=== PATIENT | female | born 1975 | race Caucasian/White ===

== ENCOUNTER 2018-02-02 08:07 | Day surgery (SDC) | payer OTHER, SELFPAY ==
[2018-02-01 12:28] VITALS: BMI 41.5
[2018-02-02] VITALS (13 sets, daily range): BP systolic 119–141; BP diastolic 64–81; PULSE 90–105; RESP 12–17; TEMP 36.1–36.6; O2SAT 92–96; BMI 41.5
[2018-02-02] MEDS: LACTATED RINGERS 1,000 ML 42 ML IV ×2 (09:20→12:05)
--- NOTE | 2018-02-02 09:28 | PM.PREOP ---
Pre-operative Note Interval Note Pre-op Check: History & Physical Reviewed by Physician and Exam Performed
--- NOTE | 2018-02-02 09:35 | P.OP_ITS ---
Operative Date/Time/Diagnoses - Date of procedure: 02/02/18 Time of procedure: 12:49 Pre-op diagnosis: chronic pain chronic radiculopathy Post-op diagnosis: same Procedure & Clinicians Procedure: Thoracic laminectomy for placement of spinal cord stimulator paddle Placement of spinal cord stimulator generator Initial complex programming of spinal cord generator Same procedure as scheduled: Yes Indications: 42-year-old female with intractable chronic pain. She had some partial relief with a spinal cord stimulator but was not getting enough stimulation with 1 generator shared between her cervical and lumbar leads. She requested a 2nd generator tibial run both of these at the same time. It was also felt that she could benefit from paddle lead placement for broader coverage. She requested operative intervention. Risks and benefits of surgery discussed and appropriate consents were obtained. Surgeon: Lang Mendoza Director It Project: Leatha Orozco Anesthesia Type: General Operative Notes Findings: None Closure Type: primary Specimen(s): none sent Implants & Drains: [employer] WaveWriterSpinal Cord Stimulator Estimated Blood Loss (mL): 20 Procedure in detail: Patient was brought to the operating room and intubated on the stretcher. There then rolled over to the well-padded prone position on the Jermain table. The back was prepped and draped in the standard sterile fashion. Time-out was performed and preoperative antibiotics were given. Her previous lumbar wire incision was opened up and the leads were pulled easily. We then cut the lumbar leads proximal to the anchors. We used fluoroscopy for localization of the paddle and laminectomy. The plan was to put the paddle over the T7-8 space. A 4 cm midline incision was made and the bilateral paraspinal muscles were dissected out laterally. The cervical leads were in her superficial tissue at this area and we carefully kept them out of the way. A marker was placed to confirm our positioning at T8-9. We then performed a laminectomy at T8-9 with a bur and Kerrison rongeurs. We used the trial and then advanced our paddle implant cephalad. We had difficulty keeping this midline as there is a fair amount of scar tissue. I went up to the next level T7-8 and made a small laminotomy tibial to expose the midline and help advance the paddle until it was in the correct position. We then confirmed positioning at T7-8 with fluoroscopy. The leads were tied down into the soft tissue and then into the lumbodorsal fascia. We then made a 4 cm incision for our generator pocket on the left side below the iliac crest and lateral to the SI joint. We opened the pocket with Bovie. We then used the tunneler to pass the leads down to the generator pocket and hooked up the generator. We ran our initial test to activate the generator and make sure there was good function with the paddle leads. The wounds were then irrigated. An extra loop of lead was made proximally and the remainder was placed deep to the battery. We then placed a primed epidural catheter up underneath the lamina at T7 and advanced it dorsal to the paddle. This had cystic 8 mL of 0.25% Marcaine as well as 100 mcg of fentanyl for postoperative pain relief. The fascia was closed and the epidural was injected without resistance. We placed vancomycin powder into the wounds. The superficial was closed and the skin was closed. Sterile dressing was placed. She was then rolled over, extubated, and brought to recovery room with no complications. Complications: none Condition: stable Disposition: PACU Plan for aftercare: Outpatient. Limited bend, twist, lift for 6 weeks.
[2018-02-02] MEDS: ONDANSETRON 4 MG/2 ML INJ IV (09:58)
[2018-02-02] MEDS: APREPITANT 40 MG CAPSULE PO (09:58)
--- NOTE | 2018-02-02 10:00 | DI.RAD.S_ITS ---
PROCEDURE: XR THORACIC SPINE 3V INDICATIONS: T-8 SPINE STIMULATOR TECHNIQUE: 3 views of the thoracic spine were acquired. [facility] [place], [place], XR THORACOLUMBAR SPINE 2 VIEWS, 08/27/2017, 13:34. FINDINGS: Bones: Intraoperative visualization shows successful placement of a dorsal epidural spinal stimulation lead plate with lead wires extending inferiorly from the superior electrodes which cross the T7-T8 area dorsally. Soft tissues: No paravertebral stripe thickening. IMPRESSION: Successful placement of epidural spinal electrode leads and electrodes plate in the T7-T8 area dorsally. Dictated by: Elia Ni M.D. on 02/02/2018 at 13:24 Approved by: Elia Ni M.D. on 02/02/2018 at 13:27
[2018-02-02] MEDS: CLINDAMYCIN 900 MG/50 ML PIGGYBACK 50 MG IV (10:02)
--- NOTE | 2018-02-02 10:55 | SUR.OPER ---
Prone on spine table, head in foam head support, padded chest and pelvic supports, gel pad at knees, lower legs supported by pillows; nipples, genitalia and toes free of pressure, arms secured on foam padded arm boards at <90 degrees abduction. Tape over blanket at thigh secured to table.
[2018-02-02] MEDS: THROMBIN (BOVINE) 5,000 UNIT VIAL 5000 UNIT TOP (10:58)
[2018-02-02] MEDS: BUPIVACAINE 0.25% (PF) 8 ML, fentaNYL 100 MCG INJ (10:58)
[2018-02-02] MEDS: VANCOMYCIN 1,000 MG VIAL 1000 MG TOP (10:58)
[2018-02-02] MEDS: SODIUM CHLORIDE 0.9% 1,000 ML, GENTAMICIN 80 MG IRR ×2 (10:59→11:01)
[2018-02-02] MEDS: hydrOXYzine 50 MG/ML INJ 25 MG IM (13:31)
[2018-02-02] MEDS: MORPHINE 4 MG/ML INJ 2 MG IV ×3 (13:34→14:07)
[2018-02-02] MEDS: LORazepam 2 MG/ML SYRINGE 0.5 MG IV (13:41)
[2018-02-02] MEDS: OXYCODONE/ACETAMINOPHEN 5/325 TABLET 1 TAB PO ×2 (14:29→14:30)
== END 2018-02-02 15:44 | disposition home or self-care (01) ==
PROVIDERS: PCP Family Medicine; Visit Provider Orthopaedic Surgery
PROC: (CPT 63685; principal; 2018-02-02 09:45)
DX: G89.4 Chronic pain syndrome (principal); Z98.890 Other specified postprocedural states; M54.10 Radiculopathy, site unspecified; E03.9 Hypothyroidism, unspecified; G47.33 Obstructive sleep apnea (adult) (pediatric); G40.909 Epilepsy, unspecified, not intractable, without status epilepticus; E78.5 Hyperlipidemia, unspecified; M79.7 Fibromyalgia; J45.909 Unspecified asthma, uncomplicated; M19.90 Unspecified osteoarthritis, unspecified site; Z68.41 Body mass index [BMI] 40.0-44.9, adult; E66.9 Obesity, unspecified
CPT/HCPCS: 63685; 72072; 76001; C1776; J1100; J2060; J2250; J2270; J2405; J2704; J3010; J3410; J8501

== ENCOUNTER 2018-03-30 06:31 | Day surgery (SDC) | payer OTHER, SELFPAY ==
[2018-03-26 12:47] VITALS: BMI 41.5
[2018-03-30] VITALS (35 sets, daily range): BP systolic 87–148; BP diastolic 51–104; PULSE 84–108; RESP 10–24; TEMP 35.9–36.7; O2SAT 89–99; BMI 41.5
[2018-03-30] MEDS: LACTATED RINGERS 1,000 ML 42 ML IV (07:36)
--- NOTE | 2018-03-30 07:37 | PM.PREOP ---
Pre-operative Note Interval Note Pre-op Check: Yes History & Physical Reviewed by Physician and Yes Exam Performed Changes: No
--- NOTE | 2018-03-30 07:37 | PM.OP.1 ---
Operative Date/Time/Diagnoses Date of procedure: 03/30/18 Pre-op diagnosis: History of spinal cord stimulator Chronic pain Flipped battery of stimulator Post-op diagnosis: same
--- NOTE | 2018-03-30 07:43 | P.OP_ITS ---
Operative Date/Time/Diagnoses Date of procedure: 03/30/18 Pre-op diagnosis: History of spinal cord stimulator Chronic pain Flipped battery of spinal cord stimulator Post-op diagnosis: same Procedure & Clinicians Procedure: Revision placement of spinal cord stimulator battery Same procedure as scheduled: Yes Indications: 42-year-old female with a history of chronic pain. She had a spinal cord stimulator but the battery stopped charging. It was found that the battery had flipped over and was no longer accepting a charge and she would need to have the battery repositioned for full function. Risks and benefits of surgery discussed and appropriate consents were obtained. Surgeon: Lang Mendoza Driller Multiple Spindle: Marla Thomas Click Yes if Unassisted: No Anesthesia Type: General Operative Notes Findings: none Closure Type: primary Specimen(s): none sent Implants & Drains: Estimated Blood Loss (mL): 10 Procedure in detail: The patient's battery impedance was checked in the preop center and was functioning well. The patient was brought to the operating room and intubated on the table. She was rolled over to the well-padded prone position on the Jermain table. The back was prepped and draped in the standard sterile fashion. Preoperative antibiotics were given. Time-out was performed. We opened up her battery pocket using her previous incision and blunt dissection. The battery was still attached on 1 corner but the other corner had pulled loose. Examining it, the battery had not actually flipped over. However, due to her large size, it appeared that the battery had eroded through the adipose tissue to a very deep level. Only the tip of the battery was superficial and the bottom of it was 4 cm underneath the skin which meant that it was too deep to accept the charge. We removed the battery and the wound was irrigated. We then placed deep stitches to close off her deep pocket. We created a very superficial pocket underneath the skin and placed the battery there and tacked it down with several new stitches through the holes. The superficial and the skin were closed. Sterile dressing was placed. She was then rolled over, extubated, and brought back to recovery room with no complications Complications: none Condition: stable Disposition: PACU Plan for aftercare: Outpatient.
[2018-03-30] MEDS: CLINDAMYCIN 900 MG/50 ML PIGGYBACK 50 MG IV (07:48)
[2018-03-30] MEDS: BUPIVACAINE 0.25% W/ EPI VIAL 50 ML INJ (08:15)
[2018-03-30] MEDS: fentaNYL 100 MCG/2 ML INJ 50 MCG IV ×3 (09:09→09:20)
[2018-03-30] MEDS: OXYCODONE/ACETAMINOPHEN 5/325 TABLET 1 TAB PO ×2 (09:16→09:22)
[2018-03-30] MEDS: LORazepam 1 MG TABLET PO (09:27)
--- NOTE | 2018-03-30 09:31 | SUR.PHASEI ---
Spoke with Dr Alfonso polanco using po Lorazepam due to anxiety and possible spasm. With BELA do not want to put back to sleep.
--- NOTE | 2018-03-30 09:34 | SUR.PHASEI ---
Now with c/o of Chest and arm pain. O2 resumed despite sats >92%. Call into OR to Dr Mendoza who okays an EKG.
[2018-03-30] MEDS: fentaNYL 100 MCG/2 ML INJ IV (09:41)
[2018-03-30] MEDS: MORPHINE 10 MG/ML INJ 2 MG IV ×4 (09:55→11:49)
--- NOTE | 2018-03-30 09:58 | SUR.PHASEI ---
EKG complete and shown to DR Hamilton. Difficult to get both the EKG and BP readings due to restlessness. Also moaning. Has received 200mcg Fentanyl, 2Mg Morphine, 1mg Lorazepam po, 10mg Percocet. Still c/o pain and moans. Oxygen ongoing.Mostlysleeping right now but ongoing moaning.
--- NOTE | 2018-03-30 10:18 | SUR.PHASEI ---
Okay rec'd frpom patient to inform father of situation. He is told of chest pain and negative EKG with pending labs. Also told of treatment for anxiety. He is heard to say that's a real possibility. Told of possibility of admission for folow up and diagnostics.
--- NOTE | 2018-03-30 10:30 | SUR.PHASEI ---
Discussed turning on nerve stimulator with patient to help pain but she said it wouldn't help. Have also changed position (supine, sitting) and applied cool compress tp forehead.
--- NOTE | 2018-03-30 10:40 | SUR.PHASEI ---
Still not ready to leave PACU due to continued pain. Moaning more a quiet whimper that is ongoing with patient holding her left shoulder while laying on her side. Awaiting Troponin labs. Holding off on further Morphine with BP's noted, and at this time Lorazepam. O2 remains ongoing.
--- NOTE | 2018-03-30 10:44 | SUR.PHASEI ---
Check of left arm due to holding of shoulder & arm. Cap refill immediate, Pulse (radial) strong. Extremity through the fingers warm. Ice applied. BP cuff initially on lega nad mkoved to arm replaced on leg.
[2018-03-30 10:56] LABS: Troponin I < 0.012 ng/mL (0.01-0.034)
--- NOTE | 2018-03-30 11:04 | SUR.PHASEI ---
No changes in symptoms reported. Nerve stimulator turned on at this time. Dr Hamilton at bedside. Still awaiting Trop levels.
--- NOTE | 2018-03-30 11:08 | SUR.PHASEI ---
Troponin back now and negative.
--- NOTE | 2018-03-30 11:16 | SUR.PHASEI ---
Spoke with father regarding tests for cardiac cause being negative. He verbalizes that what we are seeing is a common occurrance with hospitalizations and that even though the patient takes a lot of analgesics, she will milk things out.
--- NOTE | 2018-03-30 11:58 | SUR.PHASEI ---
For most of the last hour has been steadily rocking back and forth in bed with cool compress once on forehead over the eyes instead. Asked about back pain, she responds it is at 9/10. The chest, jaw & arm continue to be 12. She holds her left arm continually as well. In brief conversation asking what her father said over the phone and told he said she'd had difficulties previously after surgery before.
--- NOTE | 2018-03-30 12:24 | PM.PN.1 ---
Subjective Date Patient Seen: 03/30/18 Time Patient Seen: 10:00 Interval history: I was told by the DIGESTER COOK that our patient was complaining of left arm and chest pain which she described as sharp and radiating into the jaw. She had an uneventful replacement of a SCS generator. Almost no narcotic and surgical site well infiltrated with local anesthetic. Her VSS. CN 2-12 grossly intact. Lungs CTA Heart RRR with no murmurs or rubs. No dermatomal distribution of pain in the left arm. Moving all four extremities with 4/4 motor strength. EKG. No acute ST changes. Labs: Initial Tn I was negative. Social: Her father who is coming from [place] to pick her up today Says she does this with every surgical admission and the work up always comes up negative. Surgical Hx: Previous laminectomy here at [facility]. PMHx : chronic pain involving SCS placement, asthma well controlled, hypothyroidism, depression, hyperlipidemia. A/P This is a 42 y/o female with chronic LBP with minimal risk factors for CAD complaining of left arm, chest and jaw pain after a minimally invasive procedure. Initial work up seems unlikely her pain is cardiac in origin. To be conservative I did consult with Dr. Villalobos from Internal Medicine who agreed with me but suggested I repeat the TnI and EKG in 3 hours. If they are negative it is safe to discharge the patient home. She otherwise meets all discharge criteria from the PACU. I spent a 1.5 hours consulting on this patient. Exam Vital Signs (past 8 hours): - 03/30/18 07:35 03/30/18 08:58 03/30/18 09:04 Temperature 96.7 F L 98.1 F Pulse Rate 108 H 88 90 Respiratory Rate 18 12 10 L Blood Pressure 103/72 140/90 H 123/87 H Pulse Oximetry 96 89 L 90 L 03/30/18 09:10 03/30/18 09:14 03/30/18 09:20 Temperature Pulse Rate 84 85 92 H Respiratory Rate 10 L 14 16 Blood Pressure 119/68 115/76 105/70 Pulse Oximetry 95 92 94 03/30/18 09:29 03/30/18 09:37 03/30/18 09:48 Temperature 97.5 F L Pulse Rate 84 96 H 96 H Respiratory Rate 16 14 24 Blood Pressure 105/69 148/104 H 120/79 Pulse Oximetry 95 96 97 07/31/18 09:53 03/30/18 09:58 03/30/18 10:03 Temperature Pulse Rate 98 H 98 H 99 H Respiratory Rate 14 12 16 Blood Pressure 104/53 L 103/74 112/87 H Pulse Oximetry 93 95 95 03/30/18 10:13 03/30/18 10:18 03/30/18 10:24 Temperature Pulse Rate 104 H 108 H 102 H Respiratory Rate 14 15 24 Blood Pressure 110/61 128/90 H 122/74 H Pulse Oximetry 96 94 94 03/30/18 10:29 03/30/18 10:34 03/30/18 10:44 Temperature 97.7 F Pulse Rate 104 H 102 H 102 H Respiratory Rate 14 16 18 Blood Pressure 99/62 100/51 L 101/59 L Pulse Oximetry 93 93 94 03/30/18 10:54 03/30/18 11:05 03/30/18 11:14 Temperature Pulse Rate 104 H 103 H 102 H Respiratory Rate 14 14 20 Blood Pressure 87/63 L 114/68 105/83 H Pulse Oximetry 94 95 94 03/30/18 11:30 03/30/18 11:44 03/30/18 12:00 Temperature Pulse Rate 102 H 102 H 96 H Respiratory Rate 14 12 18 Blood Pressure 127/85 H 138/98 H 114/70 Pulse Oximetry 99 96 96 03/30/18 12:15 Temperature Pulse Rate 94 H Respiratory Rate 12 Blood Pressure 118/80 Pulse Oximetry 98 Oxygen Delivery Method Nasal Cannula Oxygen Flow Rate 2 Objective Labs Labs: Laboratory Results - last 24 hr 03/30/18 10:20 Troponin I < 0.012 Assessment & Plan Plan: Assessment/Plan Narrative: See above, I typed in my full consult under the subjective heading. Plan is to repeat EKG and TnI at 3 hours. She can be discharged home if they continue to be low risk for DC. Time Spent With Patient Time with patient: Greater than 35 minutes
--- NOTE | 2018-03-30 12:30 | P.PN_ITS ---
Subjective Date Patient Seen: 03/30/18 Time Patient Seen: 10:00 Interval history: I was told by the STATISTICAL TYPIST that our patient was complaining of left arm and chest pain which she described as sharp and radiating into the jaw. She had an uneventful replacement of a SCS generator. Almost no narcotic and surgical site well infiltrated with local anesthetic. Her VSS. CN 2-12 grossly intact. Lungs CTA Heart RRR with no murmurs or rubs. No dermatomal distribution of pain in the left arm. Moving all four extremities with 4/4 motor strength. EKG. No acute ST changes. Labs: Initial Tn I was negative. Social: Her father who is coming from [place] to pick her up today Says she does this with every surgical admission and the work up always comes up negative. Surgical Hx: Previous laminectomy here at [facility]. PMHx : chronic pain involving SCS placement, asthma well controlled, hypothyroidism, depression, hyperlipidemia. A/P This is a 42 y/o female with chronic LBP with minimal risk factors for CAD complaining of left arm, chest and jaw pain after a minimally invasive procedure. Initial work up seems unlikely her pain is cardiac in origin. To be conservative I did consult with Dr. Villalobos from Internal Medicine who agreed with me but suggested I repeat the TnI and EKG in 3 hours. If they are negative it is safe to discharge the patient home. She otherwise meets all discharge criteria from the PACU. I spent a 1.5 hours consulting on this patient. Exam Vital Signs (past 8 hours): - 03/30/18 07:35 03/30/18 08:58 03/30/18 09:04 Temperature 96.7 F L 98.1 F Pulse Rate 108 H 88 90 Respiratory Rate 18 12 10 L Blood Pressure 103/72 140/90 H 123/87 H Pulse Oximetry 96 89 L 90 L 03/30/18 09:10 03/30/18 09:14 03/30/18 09:20 Temperature Pulse Rate 84 85 92 H Respiratory Rate 10 L 14 16 Blood Pressure 119/68 115/76 105/70 Pulse Oximetry 95 92 94 03/30/18 09:29 03/30/18 09:37 03/30/18 09:48 Temperature 97.5 F L Pulse Rate 84 96 H 96 H Respiratory Rate 16 14 24 Blood Pressure 105/69 148/104 H 120/79 Pulse Oximetry 95 96 97 07/31/18 09:53 03/30/18 09:58 03/30/18 10:03 Temperature Pulse Rate 98 H 98 H 99 H Respiratory Rate 14 12 16 Blood Pressure 104/53 L 103/74 112/87 H Pulse Oximetry 93 95 95 03/30/18 10:13 03/30/18 10:18 03/30/18 10:24 Temperature Pulse Rate 104 H 108 H 102 H Respiratory Rate 14 15 24 Blood Pressure 110/61 128/90 H 122/74 H Pulse Oximetry 96 94 94 03/30/18 10:29 03/30/18 10:34 03/30/18 10:44 Temperature 97.7 F Pulse Rate 104 H 102 H 102 H Respiratory Rate 14 16 18 Blood Pressure 99/62 100/51 L 101/59 L Pulse Oximetry 93 93 94 03/30/18 10:54 03/30/18 11:05 03/30/18 11:14 Temperature Pulse Rate 104 H 103 H 102 H Respiratory Rate 14 14 20 Blood Pressure 87/63 L 114/68 105/83 H Pulse Oximetry 94 95 94 03/30/18 11:30 03/30/18 11:44 03/30/18 12:00 Temperature Pulse Rate 102 H 102 H 96 H Respiratory Rate 14 12 18 Blood Pressure 127/85 H 138/98 H 114/70 Pulse Oximetry 99 96 96 03/30/18 12:15 Temperature Pulse Rate 94 H Respiratory Rate 12 Blood Pressure 118/80 Pulse Oximetry 98 Oxygen Delivery Method Nasal Cannula Oxygen Flow Rate 2 Objective Labs Labs: Laboratory Results - last 24 hr 03/30/18 10:20 Troponin I < 0.012 Assessment & Plan Plan: Assessment/Plan Narrative: See above, I typed in my full consult under the subjective heading. Plan is to repeat EKG and TnI at 3 hours. She can be discharged home if they continue to be low risk for VT. Time Spent With Patient Time with patient: Greater than 35 minutes
[2018-03-30] MEDS: OXYCODONE IR 5 MG TABLET 10 MG PO (13:58)
[2018-03-30 14:13] LABS: Troponin I < 0.012 ng/mL (0.01-0.034)
--- NOTE | 2018-03-30 14:24 | SUR.PHASEI ---
Labs back and discussed with Dr Hamilton who is also told that while the patient still is with pain, that she desires to discharge home. The patient also knows that the tests are negative for a cardiac event. Neck stimulator is on but back remains off. Discharge okayed by Dr. Hamilton.
--- NOTE | 2018-03-30 16:31 | SUR.PHASEI ---
Late DC Note: Waited for ride for 20 minutes once dressed. Did dress by herself. Reported pain still maximum but conversing easily and with a FLACC of zero. Still desiring discharge at that time.
== END 2018-03-30 15:35 | disposition home or self-care (01) ==
PROVIDERS: Anesthesiology; PCP Family Medicine; Referring Provider Nurse Practitioner Family; Visit Provider Orthopaedic Surgery
PROC: (CPT 63688; principal; 2018-03-30 07:45)
DX: G89.4 Chronic pain syndrome (principal); Z98.890 Other specified postprocedural states
CPT/HCPCS: 63688; 36415; 84484; 93005; 93010; J1100; J1170; J2250; J2270; J2405; J2704; J3010

== ENCOUNTER 2020-12-05 17:32 | Emergency (ER) | payer SELFPAY ==
[2020-12-05 17:40] VITALS: BP 131/60; PULSE 74; RESP 14; TEMP 37; O2SAT 98; BMI 36.0
== END 2020-12-05 19:44 | disposition left against medical advice (07) ==
PROVIDERS: Emergency Provider Emergency Medicine; PCP Family Medicine
DX: R51.9 Headache, unspecified (principal); R11.0 Nausea
CPT/HCPCS: 99281